=== PATIENT | female | born 1975 | race African-American/Black ===

== ENCOUNTER 2021-02-19 10:20 | Emergency (ER) | payer SELFPAY ==
[~2021-02-19] VITALS: Ht 165.1 cm; Wt 70.2 kg
[2021-02-19] MEDS ORDERED: KETOROLAC 30MG/ML VIAL IV STA (10:47)
[2021-02-19] MEDS ORDERED: SODIUM CHLORIDE 0.9% 1,000 ML IV ONE (11:00)
[2021-02-19 11:27] LABS: BASOPHILS % 0.4 % (0.0-2.0); EOSINOPHILS % 1.2 % (0.0-5.0); HEMATOCRIT. 33.8 % (36.0-48.0); HEMOGLOBIN. 11.3 g/dL (12.0-16.0); LYMPHOCYTES % 18.3 % (20.0-50.0); MEAN CORPUSCULAR HEMOGLOBIN 31.5 pg (28.0-32.0); MEAN CORPUSCULAR VOLUME 94.5 fL (81.0-99.0); MEAN PLATELET VOLUME 8.4 fl (7.4-10.4); MONOCYTES % 7.7 % (2.0-8.0); NEUTROPHILS % 72.4 % (40.0-76.0); PLATELET 165 x1000/uL (130-400); RED BLOOD CELL COUNT 3.57 mill/uL (4.2-5.4); RED CELL DISTRIBUTION WIDTH 16.1 % (11.6-14.6)
[2021-02-19 11:32] LABS: CHLORIDE 103 mEq/L (98-107)
[2021-02-19 11:51] LABS: HCG SCREEN NEGATIVE
[2021-02-19] MEDS ORDERED: POTASSIUM CHLORIDE 20MEQ TABLET SR PO ONE (12:30)
[2021-02-19 12:33] VITALS: BP 108/66
== END 2021-02-19 13:39 | disposition home or self-care (01) ==
LOC: ER 10:20
DX: R51.9 Headache, unspecified (principal); H53.8 Other visual disturbances; I49.9 Cardiac arrhythmia, unspecified; Z98.890 Other specified postprocedural states
CPT/HCPCS: 36415; 70450; 80048; 84703; 85025; 93005; 96361; 96374; 99285; J1885; J7030; Z7610